=== PATIENT | male | born 1990 | race Caucasian/White ===

== ENCOUNTER 2022-10-26 06:49 | Emergency (ER) | payer BC, SELFPAY ==
[2022-10-26] VITALS (8 sets, daily range): BP systolic 122–161; BP diastolic 71–84; PULSE 76–92; RESP 18–20; TEMP 36.8; O2SAT 96–100; BMI 24.3
--- NOTE | 2022-10-26 07:23 | CT_ITS ---
FINAL REPORT CLINICAL HISTORY: lower abd pain FINDINGS: CT OF THE ABDOMEN AND PELVIS WITH CONTRAST Axial CT images of the abdomen and pelvis were obtained after the administration of IV contrast. Coronal and sagittal reformatted images were also obtained and reviewed.This study was performed with techniques to keep radiation doses as low as reasonably achievable (ALARA). Individualized dose reduction techniques using automated exposure control or adjustment of mA and/or kV according to the patient's size were employed. Abdomen: The lung bases are clear. Note is made of bilateral gynecomastia The heart is normal in size. The liver has an unremarkable appearance, without evidence of mass or biliary ductal dilatation. The spleen is unremarkable. No adrenal mass is present. The pancreas has an unremarkable appearance. The kidneys are normal, without evidence of mass or hydronephrosis. The aorta is normal in caliber. There is no free fluid or adenopathy. No mass or abnormal fluid collection is seen. There is mild stranding adjacent to the descending colon. Pelvis: The appendix unremarkable the urinary bladder is unremarkable. A 4.8 x 2.7 cm partially fluid collection is seen in the inferomedial left gluteal subcutaneous tissues, worrisome for abscess or perianal fistula. There are multiple borderline sized and mildly enlarged inguinal nodes with a nonspecific appearance but are like reactive There is no evidence of bowel obstruction. A small amount of free fluid is present which is likely reactive. A small periumbilical hernia is seen containing fat only IMPRESSION: Findings worrisome for mild descending colitis. 4.8 cm partially imaged fluid collection in the inferomedial left gluteal subcutaneous tissues worrisome for perianal abscess with a possible perianal fistula. Authenticated and ERN
[2022-10-26 07:38] LABS: Lipase 31 U/L (23-300)
[2022-10-26 07:39] LABS: Basophils % 0.2 % (0.1-2.0); Eosinophils # 0.1 K/mm3 (0.0-0.4); Eosinophils % 0.8 % (0.1-12.0); Hematocrit 36.9 % (42.0-52.0); Hemoglobin 11.2 g/dL (14.1-18.0); Lymphocytes # 2.5 K/mm3 (0.7-4.5); Lymphocytes % 18.1 % (10-50); Mean Corpuscular HGB Conc 30.4 g/dL (31.8-35.4); Mean Corpuscular Hemoglobin 22.7 pg (27.0-31.2); Mean Corpuscular Volume 74.6 fl (80-94); Mean Platelet Volume 8.2 fl (7.4-10.4); Monocytes # 0.8 K/mm3 (0.1-1.0); Neutrophils # 10.4 K/mm3 (1.8-7.8); Neutrophils % 74.9 % (37.0-80.0); Platelet Count 442 K/mm3 (142-424); Red Blood Count 4.94 M/mm3 (4.60-6.20); Red Cell Distribution Width 17.3 % (11.5-17.5); White Blood Count 13.9 K/mm3 (4.8-10.8)
[2022-10-26 07:44] LABS: Chloride 106 mmol/L (98-107); Potassium 3.3 mmoL/L (3.5-5.1); Sodium 143 mmol/L (136-145)
[2022-10-26 07:47] LABS: Alanine Aminotransferase 19 U/L (12-78); Albumin Level 3.9 g/dl (3.5-5.0); Albumin/Globulin Ratio 1.3 (1.1-1.8); Alkaline Phosphatase 74 U/L (38-126); Amylase 55 U/L (30-110); Anion Gap 12.3 mEq/L (5-15); Aspartate Amino Transferase 22 U/L (17-59); Blood Urea Nitrogen 11 mg/dl (9-20); Calcium 9.2 mg/dl (8.4-10.2); Carbon Dioxide 28 mmol/L (22.0-30.0); Creatinine Clearance Estimated 124 mL/min (50-200); Estimated Glomerular Filt Rate 97 ml/min (>60); GFR (African American) 118 ML/MIN (>60); Glucose 90 mg/dl (74-100); Total Protein,Serum 6.9 g/dl (6.3-8.2)
[2022-10-26 07:48] LABS: Bilirubin,Total < 0.1 mg/dl (0.2-1.3)
--- NOTE | 2022-10-26 07:56 | PC.NURSE ---
urinal provided to pt and updated pt that MD needs a sample
[2022-10-26 08:07] LABS: C-Reactive Protein 10.4 mg/L (0-4)
--- NOTE | 2022-10-26 08:16 | PC.NURSE ---
pt unable to urinate at this time
--- NOTE | 2022-10-26 08:17 | HMH.EDGENADL ---
Discharge Plan Disposition Chief Complaint: Abdominal Pain Prescriptions Prescriptions: No Action Unobtainable Clinical Impressions Clinical Impression: Exacerbation of ulcerative colitis with abscess, Exacerbation of ulcerative colitis with fistula Stand Alone Forms Stand Alone Forms: Transfer Record - ED Instructions Patient Instructions: DI for Acute Abdominal Pain Discharge ED Provider: Lili (ED)Abhi General Adult HPI General Chief complaint: Abdominal Pain Stated complaint: Abd pain,nausea Time Seen by Provider: 10/26/22 07:57 Mode of Arrival: Ambulatory Source of Information: Patient Limitations: No Limitations Description of Symptoms (Recalled from ER Triage Doc. by RN): pt to ed c/o generalized abd pain. pt reports a hx of ulcerative colitis. pt denies v/d. pt reports this pain is similar to his typical episodes. History of Present Illness HPI narrative: Patient is a 32-year-old male presenting with concerns for perirectal abscess. Patient states that he has a history of ulcerative colitis that was diagnosed 13 years ago at the age of 19. He is from [place] but recently it is living in [place] is going to be moving here but does not have an established lead business analyst or colorectal surgeon in the [place] area. He does have a GI doctor at [facility] that he has been seeing. States that his UC was under control until about 2 years ago at which point he started having worsening symptoms. He comes in today because over the last few weeks has been having 8-10 bloody bowel movements a day with significant abdominal pain and recurrence of an abscess around his rectal region. States that he has had 2 different locations of recurrent abscesses all of which have been drained at the bedside and he is never seen a colorectal surgeon for this. He does not know whether or not he has a fistula has not been diagnosed with this in the past. He has not been diagnosed with Crohn's disease but ulcerative colitis. He is currently taking prednisone 20 mg daily and he is on a tapering dose this was a prescription that he had in reserve at home and initiated this himself. Patient denies any fevers or chills currently. He does have significant abdominal pain particular in his right upper quadrant. No history of primary sclerosing cholangitis to his knowledge. Of note initial work-up including labs imaging and treatment were initiated by Dr. Pearson and his team prior to my arrival and assessment. Related Data Home Medications Medication Instructions Recorded Confirmed Unobtainable 10/26/22 10/26/22 Allergies Allergy/AdvReac Type Severity Reaction Status Date / Time No Known Allergies Allergy Verified 10/26/22 07:18 [facility] Disclaimer: The information contained in this section may have been updated after the patient was seen, as this information can be updated by other users. Social History Smoking Status: Current every day smoker alcohol intake: never current occupational status: other Travel in the last 8 weeks: None ROS Obtained: Yes All systems reviewed & no additional complaints except as documented Physical Exam General General appearance: alert Respiratory Respiratory exam: Present normal lung sounds bilaterally Cardiovascular Cardiovascular exam: Absent tachycardia Abdominal Exam Abdominal exam: Present other (Diffuse abdominal tenderness no focality no rebound or guarding) Rectal Exam Rectal exam: Present other (Is an area of hypertrophic skin on the left buttock in the perirectal region with chronic scarring but significant induration and tenderness consistent with an abscess and cellulitis the region is about 10 x 5 cm) Neurological Exam Neurological exam: Present alert Medical Decision Making Gaurang Inquiry Pt receiving controlled substance: No Vital Signs: 10/26/22 07:12 10/26/22 08:16 10/26/22 08:19 Temperature 98.3 F Temperature Source Oral
--- NOTE | 2022-10-26 09:39 | PC.NURSE ---
Power-shared images to [facility], spoke with Tracy in Radiology
--- NOTE | 2022-10-26 09:43 | PC.NURSE ---
Contacting [facility] MDs colorectal team for Dr. Balderrama
[2022-10-26 10:06] LABS: Erythrocyte Sedimentation Rate 13 mm/hr (0-15)
--- NOTE | 2022-10-26 10:15 | PC.NURSE ---
speaking to dr leon at [facility]
[2022-10-26 10:43] LABS: Microscopic, Urine URINE MICROSCOPIC (MICROSCOPIC)
--- NOTE | 2022-10-26 10:43 | PC.NURSE ---
Spoke with Barbara at [facility] for patient transfer.
[2022-10-26 10:48] LABS: Appearance,Urine CLEAR (Clear); Bilirubin,Urine Negative (Negative); Blood, Urine Negative (Negative); Color,Urine YELLOW (Yellow); Glucose,Urine (UA) Negative (Negative); Ketones,Urine Negative (Negative); Leukocyte Esterase,Urine Negative (Negative); Nitrate,Urine Negative (Negative); PH,Urine 6.5 (5.0-8.5); Protein,Urine Negative (Negative); Urobilinogen,Urine 0.2 EU/dl (0.2)
[2022-10-26 11:10] LABS: Bacteria,Urine Trace /lpf; Squamous Epithelial Cell,Urine Occasional #/hpf (0-5)
== END 2022-10-26 11:09 | disposition short-term general hospital (02) ==
PROVIDERS: Student in an Organized Health Care Education/Training Program; Emergency Provider Emergency Medicine
DX: K51.913 Ulcerative colitis, unspecified with fistula (principal); R10.84 Generalized abdominal pain; F17.200 Nicotine dependence, unspecified, uncomplicated
CPT/HCPCS: 74177; 80053; 81001; 82150; 83690; 85025; 85651; 86140; 87040; 96361; 96365; 96375; 99285; J2405; J2543; Q9967

== ENCOUNTER 2022-12-17 19:04 | Observation (INO) | payer BC, SELFPAY ==
[2022-12-17 19:12] VITALS: BP 124/81; PULSE 107; RESP 20; TEMP 37; O2SAT 97; BMI 26.6
--- NOTE | 2022-12-17 19:31 | CT_ITS ---
PROCEDURE INFORMATION: Exam: CT Abdomen And Pelvis With Contrast Exam date and time: 12/17/2022 8:31 PM Age: 32 years old Clinical indication: Other: Rectal bleeding; Additional info: HX of uc, crohn's, anal distula TECHNIQUE: Imaging protocol: Computed tomography of the abdomen and pelvis with contrast. Radiation optimization: All CT scans at this facility use at least one of these dose optimization techniques: automated exposure control; mA and/or kV adjustment per patient size (includes targeted exams where dose is matched to clinical indication); or iterative reconstruction. Contrast material: ISOVUE; Contrast volume: 75 ml; Contrast route: IV; REPORTING DATA: Count of CT and Cardiac NM exams in prior 12 months: This patient has received [address] and 0 known cardiac nuclear medicine studies in the 12 months prior to the current study. COMPARISON: CT ABDOMEN PELVIS W CON 10/26/2022 8:27 AM FINDINGS: Liver: Normal. No mass. Gallbladder and bile ducts: Normal. No calcified stones. No ductal dilation. Pancreas: Normal. No ductal dilation. Spleen: Normal. No splenomegaly. Adrenal glands: Normal. No mass. Kidneys and ureters: Normal. No hydronephrosis. Stomach and bowel: Diffuse colonic wall thickening compatible with active colitis. Small bowel loops appear unremarkable. No evidence of bowel obstruction. Appendix: No evidence of appendicitis. Intraperitoneal space: Unremarkable. No free air. No significant fluid collection. Vasculature: Unremarkable. No abdominal aortic aneurysm. Lymph nodes: Shotty nonspecific mesenteric and periaortic lymphadenopathy. Urinary bladder: Unremarkable as visualized. Reproductive: Unremarkable as visualized. Bones/joints: Unremarkable. No acute fracture. Soft tissues: Unremarkable. IMPRESSION: Significant findings of diffuse colitis. No evidence of bowel obstruction or perforation.
[2022-12-17 19:43] LABS: Chloride 102 mmol/L (98-107); Sodium 138 mmol/L (136-145)
[2022-12-17 19:44] LABS: Potassium 3.6 mmoL/L (3.5-5.1)
[2022-12-17 19:46] LABS: Alanine Aminotransferase 18 U/L (12-78); Albumin Level 3.8 g/dl (3.5-5.0); Albumin/Globulin Ratio 1.1 (1.1-1.8); Alkaline Phosphatase 104 U/L (38-126); Anion Gap 14.6 mEq/L (5-15); Aspartate Amino Transferase 20 U/L (17-59); Basophils % 0.3 % (0.1-2.0); Bilirubin,Total 0.3 mg/dl (0.2-1.3); Blood Urea Nitrogen 8 mg/dl (9-20); Carbon Dioxide 25 mmol/L (22.0-30.0); Creatinine Clearance Estimated 135 mL/min (50-200); Eosinophils # 0.1 K/mm3 (0.0-0.4); Eosinophils % 0.7 % (0.1-12.0); Estimated Glomerular Filt Rate 97 ml/min (>60); GFR (African American) 118 ML/MIN (>60); Globulin 3.4 g/dL (1.3-3.2); Glucose 116 mg/dl (74-100); Hematocrit 35.6 % (42.0-52.0); Hemoglobin 11.3 g/dL (14.1-18.0); Lipase 96 U/L (23-300); Lymphocytes # 2.5 K/mm3 (0.7-4.5); Lymphocytes % 20.9 % (10-50); Mean Corpuscular HGB Conc 31.8 g/dL (31.8-35.4); Mean Corpuscular Hemoglobin 23.7 pg (27.0-31.2); Mean Corpuscular Volume 74.5 fl (80-94); Monocytes # 0.7 K/mm3 (0.1-1.0); Monocytes % 5.9 % (1.7-9.3); Neutrophils # 8.5 K/mm3 (1.8-7.8); Neutrophils % 72.2 % (37.0-80.0); Platelet Count 503 K/mm3 (142-424); Red Blood Count 4.78 M/mm3 (4.60-6.20); Red Cell Distribution Width 17.4 % (11.5-17.5); Total Protein,Serum 7.2 g/dl (6.3-8.2); White Blood Count 11.7 K/mm3 (4.8-10.8)
[2022-12-17 19:47] LABS: Lactic Acid 0.7 mmol/L (0.7-2.1)
--- NOTE | 2022-12-17 20:24 | HMH.EDGENADL ---
Discharge Plan Disposition Patient Disposition: Admitted Condition: Fair Chief Complaint: Abdominal Pain Clinical Impressions Clinical Impression: Exacerbation of ulcerative colitis Discharge ED Provider: Henry Terrazas General Adult HPI General Chief complaint: Abdominal Pain Stated complaint: dehydrated,stomach pain,possible anemic Time Seen by Provider: 12/17/22 20:16 Mode of Arrival: Ambulatory Source of Information: Patient Limitations: No Limitations Description of Symptoms (Recalled from ER Triage Doc. by RN): 32 M presents with chronic GI issues. He has history of UC with a new diagnosis of an anal fistula, and a possible diagnosis of crones disease. Patient reports daily and frequent blood diarrhea, nausea, vomiting, and increased pain throughout his abdomen. History of Present Illness HPI narrative: Patient is a 32-year-old male with past medical history of ulcerative colitis, previous perirectal abscess, diagnosis of anal fistula who presents emergency department for evaluation of abdominal pain and blood in the stool. Patient states he is done with this over the last 12 years, he was initially taken oral medications which he was instructed to discontinue, is supposed to start IV infusion in the coming days. There was question as to whether or not he has ulcerative colitis or has Crohn's. Over the last 2 weeks he has had worsening bloody bowel movements, over the last week have been approximately every hour including waking him up from sleep with clots. Patient denies vomiting however there is associated nausea, there is significant pain that is worse with palpation, worse with ingestion. No other acute complaints at this time. Related Data Home Medications Medication Instructions Recorded Confirmed No Known Home Medications 12/17/22 12/17/22 Allergies Allergy/AdvReac Type Severity Reaction Status Date / Time No Known Allergies Allergy Verified 10/26/22 07:18 [facility] Disclaimer: The information contained in this section may have been updated after the patient was seen, as this information can be updated by other users. Medical History (Updated 12/17/22 @ 23:09 by Henry Terrazas MD) Abscess of intestine due to ulcerative colitis Anal fistula Ulcerative colitis, unspecified with fistula Family History Other No significant family history Social History Smoking Status: Current every day smoker alcohol intake: never current occupational status: other Travel in the last 8 weeks: None ROS Obtained: Yes Systems reviewed as appropriate & no additional complaints except as documented Physical Exam General General appearance: alert and other (Appearing uncomfortable in bed) Head Head exam: atraumatic and normocephalic Eye Eye exam: Present PERRL and EOMI ENT ENT exam: Present mucous membranes moist Neck Neck exam: Present normal inspection Chest Chest inspection: Present normal inspection and symmetric chest wall rise Respiratory Respiratory exam: Present normal lung sounds bilaterally; Absent respiratory distress Cardiovascular Cardiovascular exam: Present normal rhythm and tachycardia Abdominal Exam Abdominal exam: Present soft, tenderness (Diffuse) and guarding (Voluntary) Extremities Exam Extremities exam: Present normal inspection Neurological Exam Neurological exam: Present alert; Absent motor sensory deficit Psychiatric Psychiatric exam: Present normal affect Skin Skin exam: Present warm and dry Medical Decision Making Gaurang Inquiry Pt receiving controlled substance: No Vital Signs: 12/17/22 19:12 12/17/22 23:03 Temperature 98.6 F 98.6 F Temperature Source Oral Oral Pulse Rate 97 H Pulse Rate [Right] 107 H Respiratory Rate 20 18 Blood Pressure 134/74 Blood Pressure [Left Arm] 124/81 Blood Pressure Mean [Left Arm] 95 Blood Pressur
--- NOTE | 2022-12-17 20:29 | PC.NURSE ---
pt to ct
[2022-12-17 20:46] LABS: C-Reactive Protein 68.6 mg/L (0-4)
--- NOTE | 2022-12-17 21:16 | PC.NURSE ---
rounded on pt stated he was still pain notified er md pt received a warm blanket,call light at [facility]
[2022-12-17 21:41] LABS: Erythrocyte Sedimentation Rate 20 mm/hr (0-15)
--- NOTE | 2022-12-17 21:57 | PC.NURSE ---
Dr. Terrazas at [facility] to speak with pt
--- NOTE | 2022-12-17 22:09 | PC.NURSE ---
rounded on pt nothing needed at this time,call light at bs
--- NOTE | 2022-12-17 22:13 | PC.NURSE ---
Dr. Terrazas speaking with Dr. Lakhani from [facility]
--- NOTE | 2022-12-17 22:37 | PC.NURSE ---
pt placed on waitlist. speaking with dr martinez
--- NOTE | 2022-12-17 22:39 | PC.NURSE ---
notified household coordinator of admission
--- NOTE | 2022-12-17 22:46 | PC.NURSE ---
OBSERVATION ADMISSION TO ROOM 262 WITH ACUTE BOWEL INFLAMMATION TO SERVICE OF THE HOSPITALIST.
[2022-12-17 23:03] VITALS: BP 134/74; PULSE 97; RESP 18; TEMP 37; O2SAT 97
[2022-12-17 23:23] VITALS: BP 114/72; PULSE 76; RESP 18; TEMP 36.8; O2SAT 98; BMI 25.0
--- NOTE | 2022-12-17 23:59 | EXP.HP ---
History of Present Illness *Admission Date: 12/17/22 *Reason for visit:: exacerbation of ulcerative colitis *History of present illness: 32 year old male presented to the ED for c/o rectal bleeding and abdominal pain for the past three weeks. PMHX of UC and was dx at age 19. He was recently seen in [facility] ED and transferred to for same c/o but also was noted to have a perorectal abscess. The patient has never formally established with GI at after his recent admission on 10/26/22. The ED work up consisted of blood work and a CT scan of his abdomen. Hematologic labs demostrate a leukocytosis 11.7, hemoglobin 11.3, remainder of hematologic labs are unremarkable. CT imaging of the abdomen pelvis shows diffuse colitis, no other acute pathology. The ED physician has spoke with Dr. Lakhani at and Dr. Smith at [facility]. The patient has been placed on the wait list at both facility's. Since it is unknown when the patient will be taken off waitlist, ED physician consulted hospitalist for further medical management. The pt has been admitted to the medical floor and complains of no abd pain. He is hemodynamically stable. I will repeat his CBC and BMP in the morning. [facility] Disclaimer: The information contained in this section may have been updated after the patient was seen, as this information can be updated by other users. Medical History Abscess of intestine due to ulcerative colitis Anal fistula Ulcerative colitis, unspecified with fistula Family History Other No significant family history Social History Smoking Status: Current every day smoker alcohol intake: never current occupational status: other Travel in the last 8 weeks: None Review of Systems Review of Systems Review of systems:: pertinent systems reviewed and negative unless documented below Constitutional Constitutional: Reports system reviewed and no additional complaints, except as documented Eyes Eyes: Reports system reviewed and no additional complaints, except as documented ENT Ears, Nose, Mouth, and Throat: Reports system reviewed and no additional complaints, except as documented *Cardiovascular Cardiovascular: Reports system reviewed and no additional complaints, except as documented *Respiratory Respiratory: Reports system reviewed and no additional complaints, except as documented *Gastrointestinal Gastrointestinal: Reports abdominal pain, Reports hematochezia and Reports melena *Genitourinary Genitourinary: Reports system reviewed and no additional complaints, except as documented *Musculoskeletal Musculoskeletal: Reports system reviewed and no additional complaints, except as documented Integumentary/Breasts Skin/Breast: Reports system reviewed and no additional complaints, except as documented *Neurologic Neurologic: Reports system reviewed and no additional complaints, except as documented Psychiatric Psychiatric: Reports system reviewed and no additional complaints, except as documented Meds Home Medications and Allergies Home Medications Medication Instructions Recorded Confirmed Type No Known Home Medications 12/17/22 12/17/22 History New Prescriptions to Start Prescriptions: Allergies Allergy/AdvReac Type Severity Reaction Status Date / Time No Known Allergies Allergy Verified 10/26/22 07:18 Exam Data for Last 24 hours Vital signs and Labs for Last 24 Hours: Temp Pulse Resp BP Pulse Ox O2 Del Method 98.2 F 76 18 114/72 98 Room Air 12/17/22 23:23 12/17/22 23:23 12/17/22 23:23 12/17/22 23:23 12/17/22 23:23 12/17/22 23:44 Laboratory Results - last 24 hr 12/17/22 19:24: WBC 11.7 H, RBC 4.78, Hgb 11.3 L, Hct 35.6 L, MCV 74.5 L, MCH 23.7 L, MCHC 31.8, RDW 17.4, Plt Count 503 H, MPV 8.0, Neut % (Auto) 72.2, Lymph % (Auto) 20.9, [place] % (
[2022-12-18 00:15] LABS: Appearance,Urine CLEAR (Clear); Bilirubin,Urine Negative (Negative); Blood, Urine Negative (Negative); Color,Urine YELLOW (Yellow); Glucose,Urine (UA) Negative (Negative); Ketones,Urine Negative (Negative); Leukocyte Esterase,Urine Negative (Negative); Microscopic, Urine URINE MICROSCOPIC (MICROSCOPIC); Nitrate,Urine Negative (Negative); Protein,Urine Negative (Negative); Urobilinogen,Urine 0.2 EU/dl (0.2)
[2022-12-18 00:26] LABS: WBC,Urine Occasional #/hpf (0-3)
[2022-12-18 00:43] LABS: Amphetamine/Metha Screen,Urine Negative ng/ml (<1000); Barbiturates Screen,Urine Negative ng/ml (<200)
[2022-12-18 00:44] LABS: Benzodiazepines Screen,Urine Positive ng/ml (<200)
[2022-12-18 00:45] LABS: Cannabinoid Screen,Urine Negative ng/ml (<50)
[2022-12-18 00:47] LABS: Cocaine Screen,Urine Negative ng/ml (<300); Methadone Screen,Urine Negative ng/ml (<300)
[2022-12-18 00:49] LABS: Opiate Screen,Urine Positive ng/ml (<300); Phencyclidine Screen,Urine Negative ng/ml (<25)
--- NOTE | 2022-12-18 02:45 | PC.NURSE ---
This RN spoke with LANE Gooden at [facility], no beds available at this time.
--- NOTE | 2022-12-18 03:18 | PC.NURSE ---
Patient complaints of sudden onset of severe abd. pain requesting pain medication. Spoke with Fermin KEANE new order noted. Update given to patient nurse Edilia Corona RN.
[2022-12-18 04:00] VITALS: BMI 25.0
[2022-12-18 04:04] VITALS: BP 116/68; PULSE 73; RESP 18; TEMP 36.8; O2SAT 97
--- NOTE | 2022-12-18 06:00 | PC.NURSE ---
RN spoke with DIYA Christensen after patient reported increasing pain 10/10 in abdomen. New order for pain medication received and changed per JUN.
[2022-12-18 06:47] LABS: Basophils % 0.1 % (0.1-2.0); Eosinophils % 0.3 % (0.1-12.0); Hematocrit 33.3 % (42.0-52.0); Hemoglobin 10.4 g/dL (14.1-18.0); Lymphocytes # 0.8 K/mm3 (0.7-4.5); Lymphocytes % 8.9 % (10-50); Mean Corpuscular HGB Conc 31.2 g/dL (31.8-35.4); Mean Corpuscular Hemoglobin 23.5 pg (27.0-31.2); Mean Corpuscular Volume 75.4 fl (80-94); Mean Platelet Volume 8.3 fl (7.4-10.4); Monocytes # 0.1 K/mm3 (0.1-1.0); Monocytes % 0.8 % (1.7-9.3); Neutrophils # 8.2 K/mm3 (1.8-7.8); Neutrophils % 89.9 % (37.0-80.0); Platelet Count 473 K/mm3 (142-424); Red Blood Count 4.42 M/mm3 (4.60-6.20); Red Cell Distribution Width 17.3 % (11.5-17.5); White Blood Count 9.1 K/mm3 (4.8-10.8)
[2022-12-18 06:52] LABS: MANUAL DIFFERENTIAL MANUAL DIFFERENTIAL (MANUAL DIFF)
[2022-12-18 07:12] LABS: Chloride 104 mmol/L (98-107); Potassium 3.9 mmoL/L (3.5-5.1); Sodium 137 mmol/L (136-145)
[2022-12-18 07:15] LABS: Anion Gap 10.9 mEq/L (5-15); Blood Urea Nitrogen 6 mg/dl (9-20); Calcium 8.5 mg/dl (8.4-10.2); Carbon Dioxide 26 mmol/L (22.0-30.0); Creatinine Clearance Estimated 142 mL/min (50-200); Estimated Glomerular Filt Rate 111 ml/min (>60); GFR (African American) 135 ML/MIN (>60); Glucose 154 mg/dl (74-100)
[2022-12-18 07:22] VITALS: BP 122/75; PULSE 87; RESP 16; TEMP 36.8; O2SAT 96
[2022-12-18 07:32] LABS: Anisocytosis 1+; Hypochromasia 1+; Lymphocytes % 6 % (10-50); Monocytes % 1 % (2-9); Neutrophils % 90 % (42-76); Ovalocytes 1+; Platelet Estimate Slight Increase; Total Cells Counted 100
--- NOTE | 2022-12-18 08:22 | PC.NURSE ---
[facility] called at this time to receive an update on patient. Informed no beds at this time but patient will be listed as high priority on wait list.
--- NOTE | 2022-12-18 10:01 | PC.NURSE ---
[facility] called at this time and stated that patient is to be transferred to their ED and will board until bed assignment. Given number to call report to ED charge.
--- NOTE | 2022-12-18 10:05 | PC.NURSE ---
attempted to call report to A [place] Charge, no answer at this time.
--- NOTE | 2022-12-18 10:21 | PC.NURSE ---
report called to [facility] at this time. A Clementina, Case Management working on EMS preauthorization. pt has been updated on POC and transfer.
--- NOTE | 2022-12-18 10:36 | EXP.DC.SUM ---
General Admission date:: 12/17/22 Discharge date: 12/18/22 HPI HPI HPI: Forwarded from admission H&P: 32 year old male presented to the ED for c/o rectal bleeding and abdominal pain for the past three weeks. PMHX of UC and was dx at age 19. He was recently seen in [facility] ED and transferred to for same c/o but also was noted to have a perorectal abscess. The patient has never formally established with GI at after his recent admission on 10/26/22. The ED work up consisted of blood work and a CT scan of his abdomen. Hematologic labs demostrate a leukocytosis 11.7, hemoglobin 11.3, remainder of hematologic labs are unremarkable. CT imaging of the abdomen pelvis shows diffuse colitis, no other acute pathology. The ED physician has spoke with Dr. Lakhani at and Dr. Smith at [facility]. The patient has been placed on the wait list at both facility's. Since it is unknown when the patient will be taken off waitlist, ED physician consulted hospitalist for further medical management. The pt has been admitted to the medical floor and complains of no abd pain. He is hemodynamically stable. I will repeat his CBC and BMP in the morning. Hospital Course Hospital Course Hospital Course: ULCERATIVE COLITIS EXACERBATION -c/o rectal bleeding and abdominal pain for the past three weeks -Admitted to 10/26/22 for UC + perorectal abscess -Failed outpatient follow up with -ED physician spoke with GI at [facility]. The patient has been placed on the wait list at both facilities -Admitted at [facility] while waiting for transfer -NPO -LR @ 75 mL/ hr, Dilaudid 1mg q2h PRN -GI from [facility] recommended Zosyn. Zosyn 3.375 gm IV q 6 hr -125 mg methylprednisolone given in ED -CT scan of abd reviewed and reveals diffuse colitis w/o perforation -He will transfer to [facility] in [place]. Exam Data for Last 24 hours Vital signs and Labs for Last 24 Hours: Temp Pulse Resp BP Pulse Ox O2 Del Method 98.2 F 87 16 122/75 96 Room Air 12/18/22 07:22 12/18/22 07:22 12/18/22 07:22 12/18/22 07:22 12/18/22 07:22 12/18/22 08:25 Laboratory Results - last 24 hr 12/17/22 19:24: WBC 11.7 H, RBC 4.78, Hgb 11.3 L, Hct 35.6 L, MCV 74.5 L, MCH 23.7 L, MCHC 31.8, RDW 17.4, Plt Count 503 H, MPV 8.0, Neut % (Auto) 72.2, Lymph % (Auto) 20.9, Henry % (Auto) 5.9, Eos % (Auto) 0.7, Baso % (Auto) 0.3, Neut # (Auto) 8.5 H, Lymph # (Auto) 2.5, Henry # (Auto) 0.7, Eos # (Auto) 0.1, Baso # (Auto) 0.0, ESR 20 H, Sodium 138, Potassium 3.6, Chloride 102, Carbon Dioxide 25, Anion Gap 14.6, BUN 8 L, Creatinine 0.90, Estimated Creat Clear 135, Estimated GFR 97, Est GFR ( Amer) 118, Glucose 116 H, Lactate 0.7, Calcium 9.0, Total Bilirubin 0.3, AST 20, ALT 18, Alkaline Phosphatase 104, C-Reactive Protein 68.6 H, Total Protein 7.2, Albumin 3.8, Globulin 3.4 H, Albumin/Globulin Ratio 1.1, Lipase 96 12/17/22 23:44: Urine Color Yellow, Urine Appearance Clear, Urine pH 6.0, Ur Specific [place] 1.010, Urine Protein Negative, Urine Glucose (UA) Negative, Urine Ketones Negative, Urine Blood Negative, Urine Nitrate Negative, Urine Bilirubin Negative, Urine Urobilinogen 0.2, Ur Leukocyte Esterase Negative, Urine RBC None, Urine WBC Occasional, Ur Squamous Epith Cells None, Urine Bacteria None 12/18/22 06:28: WBC 9.1, RBC 4.42 L, Hgb 10.4 L, Hct 33.3 L, MCV 75.4 L, MCH 23.5 L, MCHC 31.2 L, RDW 17.3, Plt Count 473 H, MPV 8.3, Neut % (Auto) 89.9 H, Lymph % (Auto) 8.9 L, Henry % (Auto) 0.8 L, Eos % (Auto) 0.3, Baso % (Auto) 0.1, Neut # (Auto) 8.2 H, Lymph # (Auto) 0.8, Henry # (Auto) 0.1, Eos # (Auto) 0.0, Baso # (Auto) 0.0, Total Counted 100, Neutrophils % (Manual) 90 H, Band Neutrophils % 3.0, Lymphocytes % (Manual) 6 L, Monocytes % (Manual) 1 L, Platelet Estimate Slight increase, Hypochromasia 1+, Anisocytosis 1+, Ovalocytes 1+, Sodium 137, Potassium 3.9, Chloride 104, Carbon Dioxide 26, Anion Gap 10.9, BUN 6 L, Creatinine 0.80, Estimated Creat Clear 142, Estimated GFR 111, Est GFR ( Amer) 135, Gluco
--- NOTE | 2022-12-18 10:46 | PC.NURSE ---
Called [facility]'s EMS at this time for transfer.
--- NOTE | 2022-12-18 11:00 | PC.NURSE ---
EMS at bedside to transfer patient.
== END 2022-12-18 11:03 | disposition short-term general hospital (02) ==
LOC: ER 19:22 → ICU 23:09
PROVIDERS: Nurse Practitioner Critical Care Medicine; Admitting Provider Internal Medicine; Emergency Provider Emergency Medicine; Visit Provider Internal Medicine
DX: K51.90 Ulcerative colitis, unspecified, without complications (principal); E86.0 Dehydration; F17.200 Nicotine dependence, unspecified, uncomplicated; K61.1 Rectal abscess
CPT/HCPCS: 36415; 74177; 80048; 80053; 80305; 81001; 83605; 83690; 85007; 85025; 85651; 86140; 87040; 99285; G0378; J0131; J2405; J2543; Q9967

== ENCOUNTER 2023-06-03 18:24 | Emergency (ER) | payer BC, SELFPAY ==
[2023-06-03 18:31] VITALS: BP 152/78; PULSE 100; RESP 18; TEMP 37; O2SAT 96; BMI 26.6
--- NOTE | 2023-06-03 18:57 | CT_ITS ---
PROCEDURE INFORMATION: Exam: CT Abdomen And Pelvis With Contrast Exam date and time: 06/03/2023 7:17 PM Age: 33 years old Clinical indication: Abdominal pain; Generalized; Additional info: Chrons, diffuse pain TECHNIQUE: Imaging protocol: Computed tomography of the abdomen and pelvis with contrast. Radiation optimization: All CT scans at this facility use at least one of these dose optimization techniques: automated exposure control; mA and/or kV adjustment per patient size (includes targeted exams where dose is matched to clinical indication); or iterative reconstruction. Contrast material: ISOVUE; Contrast volume: 75 ml; Contrast route: IV; COMPARISON: CT ABDOMEN PELVIS W CON 12/17/2022 8:31 PM FINDINGS: Lungs: Lung bases are clear. Liver: Normal. No mass. Gallbladder and bile ducts: Normal. No calcified stones. No ductal dilation. Pancreas: Normal. No ductal dilation. Spleen: Normal. No splenomegaly. Adrenal glands: Normal. No mass. Kidneys and ureters: Normal. No hydronephrosis. Stomach and bowel: Interval resolution of the previously noted colonic wall thickening. GI tract structures otherwise unremarkable with no evident wall thickening allowing for incomplete distention. Appendix: No evidence of appendicitis. Intraperitoneal space: Unremarkable. No free air. No significant fluid collection. Vasculature: Unremarkable. No abdominal aortic aneurysm. Lymph nodes: Unremarkable. No enlarged lymph nodes. Urinary bladder: Unremarkable as visualized. Reproductive: Unremarkable as visualized. Bones/joints: Unremarkable. No acute fracture. Soft tissues: Small fat containing umbilical hernia redemonstrated. IMPRESSION: No acute abnormalities of the abdomen and pelvis. Nonemergent findings as above.
--- NOTE | 2023-06-03 18:59 | HMH.EDGENADL ---
Discharge Plan Disposition Patient Disposition: Home, Self-Care Prescriptions Prescriptions: New prednisone 50 mg tablet 50 mg PO DAILY 5 Days Qty: 5 0RF No Action hydromorphone 2 mg/mL Syringe 1 mg IV Q2HP PRN (Reason: Severe Pain) Qty: 0 0RF nicotine 21 mg/24 hr Patch 24 Hour 21 mg transdermal DAILYP PRN (Reason: Nicotine Cravings) Qty: 1 0RF IV with Additives Lactated Ringers 1000ML [Lactated Ringer's 1000 mL bag] 1000 ML 75 mls/hr IV Ordered By: Kalpesh Maya MD Last Taken: Unknown Piperacillin/Tazo [Zosyn 3.375gm ADV] 3.375 GM 0.9 % Sodium Chloride [Sod Chloride 0.9% 50mL Adv.] 50 ML 100 mls/hr IV Q6H Ordered By: Kalpesh Maya MD Last Taken: Unknown Referrals Follow up/Referrals: Provider,MD Evelia [Primary Care Provider] - See instructions Activity Restrictions/Add. Instructions Additional Instructions/Restrictions: For more expedited GI management please contact Dr. Meeks with gastroenterology and hepatology of the [facility] at [phone] to schedule an appointment as soon as you are able. Please take your medications as prescribed. Clinical Impressions Clinical Impression: Arthritis associated with inflammatory bowel disease, Abdominal pain, AVN of femur Instructions Patient Instructions: DI for Acute Abdominal Pain Discharge ED Provider: Henry Terrazas General Adult HPI General Chief complaint: Abdominal Pain Stated complaint: rash on face,pain in arms and knees Time Seen by Provider: 06/03/23 18:25 Mode of Arrival: Ambulatory Source of Information: Patient Limitations: No Limitations Description of Symptoms (Recalled from ER Triage Doc. by RN): weakness in hands, increased joint pain. Crohns and UC. last infusion 2.5 months ago 1 month ago colonoscopy. body aches. History of Present Illness HPI narrative: Patient is a 33-year-old male with past medical history of hypermobility syndrome, Crohn's, ulcerative colitis on Remicade who presents emergency department for multiple complaints. Over the last 3 weeks patient has had progressive arthralgias in his elbows, left knee, CMC, MCP joints. He has intermittent bloody diarrhea at baseline which is no worse than normal. His baseline abdominal pain is 4 out of 10 however is currently 6 out of 10. He also has intermittent eruption of the skin lesions predominantly over his face, a rash over his nose. No oral ulcers. Due to persistent symptoms he presents here for continued evaluation. Of note patient has had a history of fistula and abscess status post surgical intervention, he has not had a colectomy. Follows with GI at . Related Data Previous Rx's Medication Instructions Recorded IV with Additives 75 mls/hr IV 12/18/22 Piperacillin/Tazo [Zosyn 3.375gm 100 mls/hr IV Q6H 12/18/22 ADV] 3.375 gm hydromorphone 2 mg/mL injection 1 mg (0.5 mL) IV Q2HP PRN Severe 12/18/22 syringe Pain #0 mL nicotine 21 mg/24 hr daily 21 mg transdermal DAILYP PRN 12/18/22 transdermal patch Nicotine Cravings #1 ea prednisone 50 mg tablet 50 mg PO DAILY Arthritis 5 days #5 06/03/23 tabs Allergies Allergy/AdvReac Type Severity Reaction Status Date / Time No Known Allergies Allergy Verified 10/26/22 07:18 [facility] Disclaimer: The information contained in this section may have been updated after the patient was seen, as this information can be updated by other users. Medical History (Updated 06/03/23 @ 20:43 by Henry Terrazas MD) Abscess of intestine due to ulcerative colitis Anal fistula Ulcerative colitis, unspecified with fistula Family History Other No significant family history Social History Smoking Status: Current every day smoker alcohol intake: never current occupational status: other Travel in the last 8 weeks: None ROS Obtained: Yes Systems reviewed as appropriate & no additional complaints except as documented Physical Exam General General appearance: alert and other (Appearing in pain in bed) Head Head exam: atraumatic and normocephalic Eye Eye exam: Present PERRL and EOMI ENT ENT exam: Present mucous membranes moist Neck Neck exam: Present normal inspection Chest Chest inspection: Present normal inspection and symmetric chest wall rise Respiratory Respiratory exam: Present normal lung sounds bilaterally; Absent respiratory distress Cardiovascular Cardiovascular exam: Present regular rate and normal rhythm Abdominal Exam Abdominal exam: Present soft and tenderness (Diffuse, mild) Extremities Exam Extremities exam: Present other (Limited active range of motion at the elbows, CMC, MCP joints bilaterally secondary to pain. No significant overlying erythema or swelling.) Neurological Exam Neurological exam: Present alert Psychiatric Psychiatric exam: Present normal affect Skin Skin exam: Present warm, dry and rash (Scattered papular lesions over the face, erythema over the bridge of the nose) Medical Decision Making Gaurang Inquiry Pt receiving controlled substance: No Vital Signs: 06/03/23 18:31 06/03/23 20:00 Temperature 98.6 F Temperature Source Oral Pulse Rate 78 Pulse Rate [Right Radial] 100 H Respiratory Rate 18 Blood Pressure 106/59 L Blood Pressure [Right Arm] 152/78 H Blood Pressure Mean [Right Arm] 102 02 Sat by Pulse Oximetry 96 96 Oxygen Delivery Method Room Air Lab Data Lab Results 06/03/23 18:45: WBC 9.0, RBC 5.04, Hgb 12.9 L, Hct 37.9 L, MCV 75.2 L, MCH 25.6 L, MCHC 34.0, RDW 16.6, Plt Count 354, MPV 8.8, Neut % (Auto) 71.8, Lymph % (Auto) 23.9, [facility] % (Auto) 3.0, Eos % (Auto) 0.9, Baso % (Auto) 0.4, Neut # (Auto) 6.5, Lymph # (Auto) 2.2, [facility] # (Auto) 0.3, Eos # (Auto) 0.1, Baso # (Auto) 0.0, ESR 8, Sodium 137, Potassium 3.9, Chloride 104, Carbon Dioxide 26, Anion Gap 10.9, BUN 17, Creatinine 0.90, Estimated Creat Clear 134, Estimated GFR 97, Est GFR ( Amer) 117, Glucose 100, Calcium 9.1, Total Bilirubin 0.5, AST 33, ALT 18, Alkaline Phosphatase 76, Total Protein 8.1, Albumin 4.6, Globulin 3.5 H, Albumin/Globulin Ratio 1.3, Lipase 76 06/03/23 18:45 06/03/23 18:45 Orders (Tests/Meds): ED MEDICATIONS Generic Name Dose Route Start Last Admin Trade Name Freq PRN Reason Stop Dose Admin Prednisone 40 mg 06/03/23 20:40 Prednisone 20mg Tab PO 06/03/23 20:41 ONCE ONE Sodium Chloride 10 ml 06/03/23 19:26 06/03/23 19:28 Sodium Chloride 0.9% 10ml Syr (Rad Only) IV 07/03/23 19:25 10 ml NEEDED PRN Administration Maintain IV Site Discontinued Medications Generic Name Dose Route Start Last Admin Trade Name Ahsan PRN Reason Stop Dose Admin Acetaminophen 1,000 mg 06/03/23 18:57 06/03/23 19:26 Acetaminophen 1,000mg/100ml Vial IV 06/03/23 18:58 1,000 mg ONCE ONE Administration Lactated Ringer's 1,000 mls @ 999 mls/hr 06/03/23 18:57 06/03/23 19:26 Lactated Ringer's 1000 Ml Bag IV 06/03/23 19:57 999 mls/hr .Q1H1M ONE Administration Iopamidol 75 ml 06/03/23 19:26 06/03/23 19:27 Iopamidol-370 (76%);100ml Bottle IV 06/03/23 19:27 75 ml ONCE ONE Administration Ketorolac Tromethamine 30 mg 06/03/23 19:06 06/03/23 19:26 Ketorolac 30mg/Ml Vial IV 06/03/23 19:07 30 mg ONCE ONE Administration Morphine Sulfate 4 mg 06/03/23 18:57 06/03/23 19:26 Morphine 4mg/Ml Syringe IV 06/03/23 18:58 4 mg ONCE ONE Administration ORDERS Category Date Time Status CT abdomen pelvis w con Stat Cat Scan 06/03/23 18:57 Completed CBC w/Auto Diff [Complete Blood Count Auto Diff] Stat Lab 06/03/23 18:45 Completed CMP [Comprehensive Metabolic Panel] Stat Lab 06/03/23 18:45 Completed ESR [Erythrocyte Sedimentation Rate] Stat Lab 06/03/23 18:45 Completed Lipase Stat Lab 06/03/23 18:45 Completed Medical Decision Narrative: In summary patient is a 33-year-old male with past medical history described above presents emergency department for evaluation of abdominal pain, arthralgias, rash in the setting of Crohn's disease, ulcerative colitis, hypermobility syndrome. Patient is hemodynamically stable nontoxic-appearing upon arrival, afebrile, appearing in pain. Differential diagnosis includes seronegative spondylarthritis, new onset autoimmune syndrome such as lupus, among others. Initial workup will be conducted with hematologic labs, CT abdomen pelvis IV contrast, urinalysis. Initial interventions include morphine, Tylenol, Toradol. Steroids will be deferred until intra-abdominal abscess can be ruled out. Workup reviewed by me, hematologic labs are nonactionable, no leukocytosis, no elevated inflammatory markers, no OMAR or critical electrolyte abnormalities. CT imaging shows no acute pathology. The case was discussed with radiology after they contacted me to relay that patient has avascular necrosis of bilateral femoral heads that is stable from prior. Given the patient has no hip pain no further workup or intervention is indicated at this time. Patient will be given 40 mg of p.o. prednisone. Patient underwent p.o. trial with successful will be referred to gastroenterology and hepatology of the [facility] for expedited management given that he is unable to get in with his current [facility] lead. Patient will be discharged with short course of steroids. Critical Care Critical Care Time Critical Care Time: No
[2023-06-03 19:12] LABS: Chloride 104 mmol/L (98-107); Potassium 3.9 mmoL/L (3.5-5.1); Sodium 137 mmol/L (136-145)
[2023-06-03 19:14] LABS: Blood Urea Nitrogen 17 mg/dl (9-20)
[2023-06-03 19:15] LABS: Alanine Aminotransferase 18 U/L (12-78); Albumin Level 4.6 g/dl (3.5-5.0); Albumin/Globulin Ratio 1.3 (1.1-1.8); Alkaline Phosphatase 76 U/L (38-126); Anion Gap 10.9 mEq/L (5-15); Aspartate Amino Transferase 33 U/L (17-59); Basophils % 0.4 % (0.1-2.0); Bilirubin,Total 0.5 mg/dl (0.2-1.3); Calcium 9.1 mg/dl (8.4-10.2); Carbon Dioxide 26 mmol/L (22.0-30.0); Creatinine Clearance Estimated 134 mL/min (50-200); Eosinophils # 0.1 K/mm3 (0.0-0.4); Eosinophils % 0.9 % (0.1-12.0); Estimated Glomerular Filt Rate 97 ml/min (>60); GFR (African American) 117 ML/MIN (>60); Globulin 3.5 g/dL (1.3-3.2); Glucose 100 mg/dl (74-100); Hematocrit 37.9 % (42.0-52.0); Hemoglobin 12.9 g/dL (14.1-18.0); Lipase 76 U/L (23-300); Lymphocytes # 2.2 K/mm3 (0.7-4.5); Lymphocytes % 23.9 % (10-50); Mean Corpuscular Hemoglobin 25.6 pg (27.0-31.2); Mean Corpuscular Volume 75.2 fl (80-94); Mean Platelet Volume 8.8 fl (7.4-10.4); Monocytes # 0.3 K/mm3 (0.1-1.0); Neutrophils # 6.5 K/mm3 (1.8-7.8); Neutrophils % 71.8 % (37.0-80.0); Platelet Count 354 K/mm3 (142-424); Red Blood Count 5.04 M/mm3 (4.60-6.20); Red Cell Distribution Width 16.6 % (11.5-17.5); Total Protein,Serum 8.1 g/dl (6.3-8.2)
--- NOTE | 2023-06-03 19:18 | PC.NURSE ---
Pt in CT
[2023-06-03] MEDS: LACTATED RINGERS 1000ML 1,000 ML 999 ML IV (19:26)
[2023-06-03] MEDS: ACETAMINOPHEN 1,000MG/100ML VIAL 1000 MG IV (19:26)
[2023-06-03] MEDS: KETOROLAC 30MG/ML VIAL 30 MG IV (19:26)
[2023-06-03] MEDS: MORPHINE 4MG/ML SYRINGE 4 MG IV (19:26)
[2023-06-03] MEDS: IOPAMIDOL-370 (76%);100ML BOTTLE 75 ML IV (19:27)
[2023-06-03] MEDS: SODIUM CHLORIDE 0.9% 10ML SYR (RAD ONLY) 10 ML IV (19:28)
[2023-06-03 19:38] LABS: Erythrocyte Sedimentation Rate 8 mm/hr (0-15)
[2023-06-03 20:00] VITALS: BP 106/59; PULSE 78; O2SAT 96
[2023-06-03 20:30] VITALS: BP 118/64; PULSE 75; RESP 18; O2SAT 96
--- NOTE | 2023-06-03 20:36 | PC.NURSE ---
in room talking with patient at this time.
[2023-06-03] MEDS: predniSONE 20MG TAB 40 MG PO (20:43)
[2023-06-03 20:52] VITALS: BP 118/64; PULSE 74; RESP 18; TEMP 36.6; O2SAT 97
== END 2023-06-03 20:53 | disposition home or self-care (01) ==
PROVIDERS: Emergency Provider Emergency Medicine
DX: M07.60 Enteropathic arthropathies, unspecified site (principal); K50.918 Crohn's disease, unspecified, with other complication; R10.9 Unspecified abdominal pain; M87.051 Idiopathic aseptic necrosis of right femur; M87.052 Idiopathic aseptic necrosis of left femur; F17.210 Nicotine dependence, cigarettes, uncomplicated
CPT/HCPCS: 74177; 80053; 83690; 85025; 85651; 96361; 96374; 96375; 99285; J0131; Q9967

== ENCOUNTER 2023-07-12 10:12 | Outpatient (CLI) | payer BC, SELFPAY ==
[2023-07-12] VITALS (10 sets, daily range): BP systolic 119–133; BP diastolic 60–78; PULSE 63–88; RESP 18; O2SAT 97–98; BMI 26.6
[2023-07-12] MEDS: HYDROCORTISONE SOD SUCCINATE 100MG VIAL 200 MG IV (10:30)
[2023-07-12] MEDS: diphenhydrAMINE 25MG CAPSULE 25 MG PO (10:30)
[2023-07-12] MEDS: ACETAMINOPHEN 325MG TAB 650 MG PO (10:30)
[2023-07-12 10:38] LABS: Basophils # 0.1 K/mm3 (0-0.2); Basophils % 0.7 % (0.1-2.0); Eosinophils % 0.6 % (0.1-12.0); Hematocrit 39.5 % (42.0-52.0); Hemoglobin 12.5 g/dL (14.1-18.0); Lymphocytes # 2.6 K/mm3 (0.7-4.5); Lymphocytes % 36.7 % (10-50); Mean Corpuscular HGB Conc 31.7 g/dL (31.8-35.4); Mean Corpuscular Volume 81.9 fl (80-94); Mean Platelet Volume 8.5 fl (7.4-10.4); Monocytes # 0.3 K/mm3 (0.1-1.0); Monocytes % 4.9 % (1.7-9.3); Neutrophils % 57.1 % (37.0-80.0); Platelet Count 262 K/mm3 (142-424); Red Blood Count 4.82 M/mm3 (4.60-6.20); Red Cell Distribution Width 16.2 % (11.5-17.5)
[2023-07-12 10:49] LABS: Alanine Aminotransferase 19 U/L (12-78); Albumin Level 4.3 g/dl (3.5-5.0); Albumin/Globulin Ratio 1.7 (1.1-1.8); Alkaline Phosphatase 59 U/L (38-126); Anion Gap 11.8 mEq/L (5-15); Aspartate Amino Transferase 26 U/L (17-59); Bilirubin,Total 0.4 mg/dl (0.2-1.3); Blood Urea Nitrogen 10 mg/dl (9-20); Calcium 8.8 mg/dl (8.4-10.2); Carbon Dioxide 25 mmol/L (22.0-30.0); Chloride 109 mmol/L (98-107); Creatinine Clearance Estimated 150 mL/min (50-200); Estimated Glomerular Filt Rate 111 ml/min (>60); GFR (African American) 134 ML/MIN (>60); Globulin 2.5 g/dL (1.3-3.2); Glucose 98 mg/dl (74-100); Potassium 3.8 mmoL/L (3.5-5.1); Sodium 142 mmol/L (136-145); Total Protein,Serum 6.8 g/dl (6.3-8.2)
[2023-07-12] MEDS: SODIUM CHLORIDE 0.9% 50ML BAG 50 ML IV (10:58)
[2023-07-12] MEDS: inFLIXimab 400 MG in 0.9 % SODIUM CHLORIDE 250 ML 83.3329999999999984 MG IV (10:59)
[2023-07-12 11:07] LABS: C-Reactive Protein < 0.3 mg/L (0-4)
== END 2023-07-12 13:35 | disposition home or self-care (01) ==
PROVIDERS: Visit Provider Internal Medicine Gastroenterology
DX: K51.914 Ulcerative colitis, unspecified with abscess (principal); K51.90 Ulcerative colitis, unspecified, without complications; Z79.899 Other long term (current) drug therapy
CPT/HCPCS: 80053; 85025; 86140; 96413; 96415; J1745

== ENCOUNTER 2023-08-09 10:19 | Outpatient (CLI) | payer BC, SELFPAY ==
[2023-08-09] VITALS (8 sets, daily range): BP systolic 115–125; BP diastolic 59–80; PULSE 73–82; RESP 18; TEMP 36.8; O2SAT 100; BMI 25.8
[2023-08-09 10:48] LABS: Basophils # 0.1 K/mm3 (0-0.2); Basophils % 0.7 % (0.1-2.0); Eosinophils # 0.1 K/mm3 (0.0-0.4); Eosinophils % 0.9 % (0.1-12.0); Hematocrit 40.1 % (42.0-52.0); Hemoglobin 12.6 g/dL (14.1-18.0); Lymphocytes # 2.3 K/mm3 (0.7-4.5); Lymphocytes % 31.7 % (10-50); Mean Corpuscular HGB Conc 31.4 g/dL (31.8-35.4); Mean Corpuscular Hemoglobin 25.7 pg (27.0-31.2); Mean Platelet Volume 8.5 fl (7.4-10.4); Monocytes # 0.4 K/mm3 (0.1-1.0); Monocytes % 4.7 % (1.7-9.3); Neutrophils # 4.5 K/mm3 (1.8-7.8); Platelet Count 282 K/mm3 (142-424); Red Blood Count 4.89 M/mm3 (4.60-6.20); Red Cell Distribution Width 15.6 % (11.5-17.5); White Blood Count 7.3 K/mm3 (4.8-10.8)
[2023-08-09] MEDS: ACETAMINOPHEN 325MG TAB 650 MG PO (10:48)
[2023-08-09] MEDS: HYDROCORTISONE SOD SUCCINATE 100MG VIAL 200 MG IV (10:48)
[2023-08-09] MEDS: diphenhydrAMINE 25MG CAPSULE 25 MG PO (10:48)
[2023-08-09 11:15] LABS: Alanine Aminotransferase 17 U/L (12-78); Albumin/Globulin Ratio 1.5 (1.1-1.8); Alkaline Phosphatase 60 U/L (38-126); Anion Gap 9.2 mEq/L (5-15); Aspartate Amino Transferase 26 U/L (17-59); Bilirubin,Total 0.3 mg/dl (0.2-1.3); Blood Urea Nitrogen 13 mg/dl (9-20); Calcium 9.1 mg/dl (8.4-10.2); Carbon Dioxide 28 mmol/L (22.0-30.0); Chloride 108 mmol/L (98-107); Creatinine Clearance Estimated 150 mL/min (50-200); Estimated Glomerular Filt Rate 111 ml/min (>60); GFR (African American) 134 ML/MIN (>60); Globulin 2.6 g/dL (1.3-3.2); Glucose 107 mg/dl (74-100); Potassium 4.2 mmoL/L (3.5-5.1); Sodium 141 mmol/L (136-145); Total Protein,Serum 6.6 g/dl (6.3-8.2)
[2023-08-09] MEDS: inFLIXimab 400 MG in 0.9 % SODIUM CHLORIDE 250 ML 83.3329999999999984 MG IV (11:30)
[2023-08-09 11:58] LABS: C-Reactive Protein < 0.3 mg/L (0-4)
[2023-08-09] MEDS: SODIUM CHLORIDE 0.9% 50ML BAG 50 ML IV (13:45)
[2023-08-09] MEDS: SODIUM CHLORIDE 0.9% 10ML FLUSH SYRINGE 10 ML IV (13:45)
== END 2023-08-09 13:50 | disposition home or self-care (01) ==
LOC: INF 10:19
PROVIDERS: Visit Provider Internal Medicine Gastroenterology
DX: K51.914 Ulcerative colitis, unspecified with abscess (principal); K51.90 Ulcerative colitis, unspecified, without complications; Z79.899 Other long term (current) drug therapy
CPT/HCPCS: 80053; 85025; 86140; 96413; 96415; J1745

== ENCOUNTER 2023-09-06 10:25 | Outpatient (CLI) | payer BC, SELFPAY ==
[2023-09-06] VITALS (9 sets, daily range): BP systolic 112–126; BP diastolic 64–75; PULSE 72–80; RESP 18; TEMP 37.1; O2SAT 99; BMI 25.8
[2023-09-06] MEDS: ACETAMINOPHEN 325MG TAB 650 MG (10:46)
[2023-09-06] MEDS: diphenhydrAMINE 25MG CAPSULE 25 MG PO (10:46)
[2023-09-06] MEDS: HYDROCORTISONE SOD SUCCINATE 100MG VIAL 200 MG (10:46)
[2023-09-06 11:03] LABS: Basophils % 0.6 % (0.1-2.0); Eosinophils % 0.3 % (0.1-12.0); Hematocrit 40.3 % (42.0-52.0); Hemoglobin 12.8 g/dL (14.1-18.0); Lymphocytes # 1.8 K/mm3 (0.7-4.5); Lymphocytes % 23.1 % (10-50); Mean Corpuscular HGB Conc 31.8 g/dL (31.8-35.4); Mean Corpuscular Hemoglobin 26.1 pg (27.0-31.2); Mean Corpuscular Volume 82.1 fl (80-94); Mean Platelet Volume 8.4 fl (7.4-10.4); Monocytes # 0.3 K/mm3 (0.1-1.0); Monocytes % 4.3 % (1.7-9.3); Neutrophils # 5.7 K/mm3 (1.8-7.8); Neutrophils % 71.7 % (37.0-80.0); Platelet Count 284 K/mm3 (142-424); Red Blood Count 4.91 M/mm3 (4.60-6.20); White Blood Count 7.9 K/mm3 (4.8-10.8)
[2023-09-06 11:16] LABS: Chloride 107 mmol/L (98-107); Potassium 4.1 mmoL/L (3.5-5.1); Sodium 139 mmol/L (136-145)
[2023-09-06 11:19] LABS: Alanine Aminotransferase 20 U/L (12-78); Albumin Level 4.1 g/dl (3.5-5.0); Albumin/Globulin Ratio 1.5 (1.1-1.8); Alkaline Phosphatase 68 U/L (38-126); Anion Gap 10.1 mEq/L (5-15); Aspartate Amino Transferase 28 U/L (17-59); Bilirubin,Total 0.3 mg/dl (0.2-1.3); Blood Urea Nitrogen 9 mg/dl (9-20); Carbon Dioxide 26 mmol/L (22.0-30.0); Creatinine Clearance Estimated 150 mL/min (50-200); Estimated Glomerular Filt Rate 111 ml/min (>60); GFR (African American) 134 ML/MIN (>60); Globulin 2.8 g/dL (1.3-3.2); Total Protein,Serum 6.9 g/dl (6.3-8.2)
[2023-09-06 11:20] LABS: Glucose 99 mg/dl (74-100)
[2023-09-06 11:25] LABS: C-Reactive Protein 0.5 mg/L (0-4)
[2023-09-06] MEDS: SODIUM CHLORIDE 0.9% 50ML BAG 50 ML IV (11:33)
[2023-09-06] MEDS: inFLIXimab 400 MG in 0.9 % SODIUM CHLORIDE 250 ML 83.3329999999999984 MG IV (11:33)
== END 2023-09-06 14:00 | disposition home or self-care (01) ==
LOC: INF 10:25
PROVIDERS: Visit Provider Internal Medicine Gastroenterology
DX: K51.914 Ulcerative colitis, unspecified with abscess (principal); K51.90 Ulcerative colitis, unspecified, without complications
CPT/HCPCS: 80053; 85025; 86140; 96413; 96415; J1745

== ENCOUNTER 2023-10-04 11:06 | Outpatient (CLI) | payer BC, SELFPAY ==
[2023-10-04] VITALS (9 sets, daily range): BP systolic 119–130; BP diastolic 64–72; PULSE 69–84; RESP 18; O2SAT 97–98; BMI 25.8
[2023-10-04] MEDS: 0.9 % SODIUM CHLORIDE 50 ML 100 ML IV (11:12)
[2023-10-04] MEDS: ACETAMINOPHEN 325MG TAB 650 MG (11:13)
[2023-10-04] MEDS: HYDROCORTISONE SOD SUCCINATE 100MG VIAL 200 MG (11:13)
[2023-10-04] MEDS: diphenhydrAMINE 25MG CAPSULE 25 MG PO (11:13)
[2023-10-04 11:41] LABS: Basophils # 0.1 K/mm3 (0-0.2); Basophils % 0.7 % (0.1-2.0); Eosinophils % 0.6 % (0.1-12.0); Hematocrit 41.5 % (42.0-52.0); Hemoglobin 13.1 g/dL (14.1-18.0); Lymphocytes # 2.5 K/mm3 (0.7-4.5); Mean Corpuscular HGB Conc 31.6 g/dL (31.8-35.4); Mean Corpuscular Hemoglobin 26.4 pg (27.0-31.2); Mean Corpuscular Volume 83.6 fl (80-94); Mean Platelet Volume 8.5 fl (7.4-10.4); Monocytes # 0.3 K/mm3 (0.1-1.0); Neutrophils # 3.3 K/mm3 (1.8-7.8); Neutrophils % 53.7 % (37.0-80.0); Platelet Count 280 K/mm3 (142-424); Red Blood Count 4.97 M/mm3 (4.60-6.20); Red Cell Distribution Width 16.5 % (11.5-17.5); White Blood Count 6.2 K/mm3 (4.8-10.8)
[2023-10-04] MEDS: inFLIXimab 400 MG in 0.9 % SODIUM CHLORIDE 250 ML 83.3329999999999984 MG IV (11:46)
[2023-10-04 11:48] LABS: Chloride 108 mmol/L (98-107); Potassium 4.1 mmoL/L (3.5-5.1); Sodium 139 mmol/L (136-145)
[2023-10-04 11:51] LABS: Alanine Aminotransferase 24 U/L (12-78); Albumin Level 4.3 g/dl (3.5-5.0); Albumin/Globulin Ratio 1.5 (1.1-1.8); Alkaline Phosphatase 59 U/L (38-126); Anion Gap 10.1 mEq/L (5-15); Aspartate Amino Transferase 25 U/L (17-59); Bilirubin,Total 0.5 mg/dl (0.2-1.3); Blood Urea Nitrogen 12 mg/dl (9-20); Calcium 9.1 mg/dl (8.4-10.2); Carbon Dioxide 25 mmol/L (22.0-30.0); Creatinine Clearance Estimated 150 mL/min (50-200); Estimated Glomerular Filt Rate 111 ml/min (>60); GFR (African American) 134 ML/MIN (>60); Globulin 2.9 g/dL (1.3-3.2); Glucose 101 mg/dl (74-100); Total Protein,Serum 7.2 g/dl (6.3-8.2)
[2023-10-04 11:57] LABS: C-Reactive Protein < 0.3 mg/L (0-4)
== END 2023-10-04 14:18 | disposition home or self-care (01) ==
LOC: INF 11:06
PROVIDERS: PCP Family Medicine; Visit Provider Internal Medicine Gastroenterology
DX: K51.914 Ulcerative colitis, unspecified with abscess (principal); K51.90 Ulcerative colitis, unspecified, without complications; Z79.899 Other long term (current) drug therapy
CPT/HCPCS: 80053; 85025; 86140; 96413; 96415; J1745

== ENCOUNTER 2023-12-12 23:45 | Emergency (ER) | payer SELFPAY ==
[2023-12-12 23:48] VITALS: BP 144/101; PULSE 87; RESP 20; TEMP 36.7; O2SAT 99; BMI 26.6
--- NOTE | 2023-12-13 00:13 | HMH.EDGENADL ---
Discharge Plan Disposition Patient Disposition: Home, Self-Care Prescriptions Prescriptions: New prednisone 20 mg tablet 40 mg PO ONCE 7 Days Qty: 40 0RF Rx Instructions: Please take 40 mg daily for 1 week, then take 30 mg daily for 1 week, then 20 mg daily for 1 week, then 10 mg daily for 1 week No Action prednisone 50 mg tablet 50 mg PO DAILY 5 Days Qty: 5 0RF nicotine 21 mg/24 hr Patch 24 Hour 21 mg transdermal DAILYP PRN (Reason: Nicotine Cravings) Qty: 1 0RF Referrals Follow up/Referrals: Sana Ge MD [Primary Care Provider] - See instructions Activity Restrictions/Add. Instructions Additional Instructions/Restrictions: Please take prednisone as prescribed. Please follow-up with your PCP and your GI as soon as possible. Clinical Impressions Clinical Impression: Crohn's disease, Exacerbation of ulcerative colitis, Bloody diarrhea Instructions Patient Instructions: DI for Acute Abdominal Pain Print Language Print Language: Nepalese Discharge ED Provider: Edgar Duffy Adult HPI General Chief complaint: Abdominal Pain Stated complaint: ulcerative colitis, crohns disease syptoms worsen Time Seen by Provider: 12/12/23 23:52 Mode of Arrival: Ambulatory Source of Information: Patient Limitations: No Limitations Description of Symptoms (Recalled from ER Triage Doc. by RN): Pt has hx of UC and crohns and is seen here for remikaid infusions however recently has run into insurance issues, pt sees Dr. Boone for GI at History of Present Illness HPI narrative: 33-year-old male with reported history of ulcerative colitis and Crohn's, followed by GI at the [facility], previously on Remicade presents for 1 month of worsening abdominal pain, mucousy and bloody stools. He reports that he ran into insurance issues and 3 months ago they stopped his Remicade infusions. He is trying to transition between insurance carriers but he has not received any new medications since that time. His last significant flare was about this time last year. He reports no fevers. He reports that his symptoms today are just a little bit worse than they have been recently. He reports approximately 15 mucousy and bloody stools per day as well as intermittent abdominal pain. Denies nausea vomiting. Currently on no medications. Related Data Previous Rx's ?Medication ?Instructions ?Recorded nicotine 21 mg/24 hr daily 21 mg transdermal DAILYP PRN 12/18/22 transdermal patch Nicotine Cravings #1 ea prednisone 50 mg tablet 50 mg PO DAILY Arthritis 5 days #5 06/03/23 tabs prednisone 20 mg tablet 40 mg (2 x 20 mg) PO ONCE 7 days 12/13/23 #40 tabs Allergies Allergy/AdvReac Type Severity Reaction Status Date / Time No Known Allergies Allergy Verified 10/26/22 07:18 [facility] Disclaimer: The information contained in this section may have been updated after the patient was seen, as this information can be updated by other users. Medical History (Updated 12/13/23 @ 00:07 by Edgar Duffy MD) Anal fistula Abscess of intestine due to ulcerative colitis Ulcerative colitis, unspecified with fistula Family History Other No significant family history Social History Smoking Status: Current every day smoker alcohol intake: never current occupational status: other Travel in the last 8 weeks: None ROS Obtained: Yes All systems reviewed & no additional complaints except as documented Physical Exam General General appearance: alert and in no apparent distress Head Head exam: atraumatic and normocephalic Eye Eye exam: Present normal appearance, PERRL and EOMI ENT ENT exam: Present normal oropharynx and normal external ear exam Neck Neck exam: Present normal inspection and full ROM Chest Chest inspection: Present normal inspection and symmetric chest wall rise; Absent tenderness Respiratory Respiratory exam: Present normal lung sounds bilaterally; Absent respiratory distress Cardiovascular Cardiovascular exam: Present regular rate and normal rhythm Abdominal Exam Abdominal exam: Present soft and tenderness (Mild, generalized); Absent distention or guarding Extremities Exam Extremities exam: Present normal inspection; Absent edema or joint swelling Back Exam Back exam: Present normal inspection; Absent tenderness Neurological Exam Neurological exam: Present alert and oriented X3; Absent motor sensory deficit Psychiatric Psychiatric exam: Present normal affect and normal mood Skin Skin exam: Present warm, dry and normal color Lymphatic Lymphatic Findings: no adenopathy Medical Decision Making Medical Records Medical records reviewed: Yes I reviewed the patient's medical records. Gaurang Inquiry Pt receiving controlled substance: No Gaurang was queried for this patient: No Vital Signs: 12/12/23 23:48 12/13/23 00:26 Temperature 98.1 F 98.0 F Temperature Source Oral Pulse Rate 90 Pulse Rate [Right Radial] 87 Respiratory Rate 20 20 Blood Pressure 133/88 Blood Pressure [Right Arm] 144/101 H Blood Pressure Mean [Right Arm] 115 02 Sat by Pulse Oximetry 99 Oxygen Delivery Method Room Air Room Air Lab Data Lab results reviewed: Yes I reviewed the patient's lab results. Orders (Tests/Meds): ED MEDICATIONS Discontinued Medications Generic Name Dose Route Start Last Admin Trade Name Ahsan PRN Reason Stop Dose Admin Oxycodone HCl 5 mg 12/13/23 00:18 12/13/23 00:23 Oxycodone 5mg Immediate Release Tablet PO 12/13/23 00:19 5 mg ONCE ONE Administration Prednisone 60 mg 12/13/23 00:04 12/13/23 00:22 Prednisone 20mg Tab PO 12/13/23 00:05 Not Given ONCE ONE Medical Decision Narrative: 33-year-old male with history of ulcerative colitis and Crohn's presents for worsening abdominal pain and bloody stools for the last month.. History was obtained via interactive discussion with patient, chart review. On arrival, patient is [afebrile, hemodynamically stable, satting appropriately, alert, oriented x4, GCS 15], moving all extremities spontaneously. Full physical exam performed and significant for minimally tender abdomen, diffusely Differential includes but is not limited to bacterial enteritis/colitis, UC exacerbation, Crohn's flare, bowel obstruction, abscess. Patient was given 5 Oxy for pain control. I had extensive discussion with patient regarding presentation. Given the chronicity of his symptoms and his history, patient is almost certainly experiencing a Crohn's/UC flare. His symptoms do not significantly worse tonight, he is not febrile, is well-appearing with benign abdominal exam, we elected to forego labs and imaging at this time. I offered patient a stool study to assess for bacterial colitis but patient declined. I also offered patient p.o. prednisone for treatment of his flare but patient reports that he does not want to take it tonight because it will prevent him from sleeping and he has something he has to do in the morning. 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 He reports he will follow-up with his GI as soon as possible. Patient discharged in stable condition. Procedures Risk/Benefits of Procedure(s) Were Explained: Yes Critical Care Critical Care Time Critical Care Time: No
[2023-12-13] MEDS: OXYCODONE 5MG IMMEDIATE RELEASE TABLET 5 MG PO (00:23)
[2023-12-13 00:26] VITALS: BP 133/88; PULSE 90; RESP 20; TEMP 36.7; O2SAT 98
== END 2023-12-13 00:27 | disposition home or self-care (01) ==
PROVIDERS: Emergency Provider Emergency Medicine; PCP Family Medicine
DX: K51.918 Ulcerative colitis, unspecified with other complication (principal); R19.7 Diarrhea, unspecified
CPT/HCPCS: 99283